=== PATIENT | male | born 1990 ===

== ENCOUNTER → 2021-09-01 | Outpatient (REF) | payer OTHER ==
[2021-09-01 10:43] LABS: SEMEN APPEARANCE OPAQUE (OPAQUE); SEMEN VISCOSITY LIQUID (LIQUID); SPERM CONCENTRATION 47.9 M/ml (>=15.0); WBC CONCENTRATION <=1 M/ml (<=1 M/ml)
== END ==
LOC: M LAB REF 10:08
PROVIDERS: ATTEND Obstetrics & Gynecology
DX: N46.8 Other male infertility (principal)

== ENCOUNTER → 2022-03-08 | Outpatient (REF) | payer OTHER | LOC: M LAB REF 17:29 | PROVIDERS: ATTEND Otolaryngology | DX: L72.3 Sebaceous cyst (principal) ==